=== PATIENT | female | born 2000 | race Caucasian/White ===

== ENCOUNTER 2021-02-06 12:44 | Emergency (ER) | payer OTHER ==
[~2021-02-06] VITALS: Ht 157.5 cm; Wt 59.1 kg
[~2021-02-06 12:44] MED LIST: CYCL-1 PO
[2021-02-06 13:29] VITALS: BP 103/37
[2021-02-06] MEDS ORDERED: ketorolac trometh inj. 60 MG/2 ML VIAL IM ONE (15:10)
[2021-02-06] MEDS ORDERED: diazepam 5mg tablet PO ONE (15:10)
[2021-02-06] MEDS ORDERED: HYDR-3965 PO (15:43)
[2021-02-06] MEDS ORDERED: CYCL-1 PO (15:43)
== END 2021-02-06 16:01 | disposition home or self-care (01) ==
LOC: ER 12:45
DX: S16.1XXA Strain of muscle, fascia and tendon at neck level, initial encounter (principal); M25.512 Pain in left shoulder; F41.9 Anxiety disorder, unspecified; F12.90 Cannabis use, unspecified, uncomplicated; F90.9 Attention-deficit hyperactivity disorder, unspecified type; Z91.040 Latex allergy status; Z79.899 Other long term (current) drug therapy; W01.0XXA Fall on same level from slipping, tripping and stumbling without subsequent striking against object, initial encounter; Y93.89 Activity, other specified; Y92.89 Other specified places as the place of occurrence of the external cause; Y99.8 Other external cause status
CPT/HCPCS: 72125; 96372; 99284; J1885